=== PATIENT | male | born 1960 | race Caucasian/White ===

== ENCOUNTER 2023-07-30 10:29 | Emergency (ER) | payer OTHER ==
[2023-07-30] MEDS ORDERED: LIDOCAINE 1% INJ 10MG/ML (20 ML MDV) SQ ONE (11:40)
[2023-07-30] MEDS ORDERED: MORPHINE SULFATE 4 MG/ML SYRINGE IM STA ×2 (11:48→13:09)
[2023-07-30] MEDS ORDERED: DIPH,PERTUS(ACELL)TETVAC-LF 0.5 ML VIAL IM ONE (11:48)
[2023-07-30] MEDS ORDERED: CEPHALEXIN 500MG STARTER PACK 4 CAP BTL PO STA (14:19)
[2023-07-30] MEDS ORDERED: ACET/COD 300 MG/30 MG STARTER PACK 6 TAB BTL PO STA (14:19)
[2023-07-30] MEDS ORDERED: SULFAMETH-TMP DS STARTER PACK 2 TAB BTL PO STA (14:19)
--- NOTE | 2023-07-30 14:21 | ED ---
General Adult HPI - General Chief complaint: Skin/Abscess/Foreign Body Stated complaint: Genital pain Time Seen by Provider: 07/30/23 11:29 Source: patient Mode of arrival: ambulatory Limitations: no limitations - History of Present Illness Initial comments: 63-year-old male presents to the ED with a chief complaint of scrotal swelling. Patient states for the past 3-4 weeks has had pain and swelling to his right groin/right scrotum. Since onset patient reports pain and swelling have increased in severity. Denies chills or fevers. No history of MRSA. No chest pain or shortness of breath. No other complaints. - Related Data Previous Rx's Medication Instructions Recorded Cephalexin [Keflex] 500 mg PO Q6HR 7 Days #28 cap 07/30/23 Sulfamethox-Tmp 800-160Mg [Bactrim 1 each PO Q12HR 7 Days #14 tab 07/30/23 Ds] Allergies Allergy/AdvReac Type Severity Reaction Status Date / Time No Known Allergies Allergy Verified 07/30/23 10:46 Review of Systems ROS Statement: Those systems with pertinent positive or pertinent negative responses have been documented in the HPI. ROS Other: All systems not noted in ROS Statement are negative. Past Medical History Past Medical History: Asthma History of Any Multi-Drug Resistant Organisms: None Reported Past Surgical History: No Surgical Hx Reported Past Psychological History: No Psychological Hx Reported Smoking Status: Current every day smoker Past Alcohol Use History: Occasional Past Drug Use History: None Reported General Exam Limitations: no limitations General appearance: alert, in no apparent distress Eye exam: Present: normal appearance Neck exam: Present: normal inspection Respiratory exam: Present: wheezes (Inspiratory wheezing bilaterally.) Cardiovascular Exam: Present: regular rate, normal rhythm GI/Abdominal exam: Present: soft exam: Present: other (Approximately 6 x 4 area of warmth, erythema, and induration over the right scrotum/perineum no spontaneous drainage. No crepitus.) Neurological exam: Present: alert, oriented X3 Skin exam: Present: warm, dry Course Vital Signs 07/30/23 10:44 Temperature 98.7 F Pulse Rate 64 Respiratory 20 Rate Blood Pressure 124/75 O2 Sat by Pulse 97 Oximetry Procedures - Incision & Drainage Site: scrotum Size (cm): 6 Anesthetic Used: lidocaine 1% Amount (mLs): 18 I&D Cleaning Method: Chloroprep Sterile Field Used?: Yes Scalpel Used: #15 Ultrasound used: No I&D Drainage Obtained: Pus, Blood Insertion of drain: No Packing: Iodoform Culture Obtained?: Yes Patient Tolerated Procedure: well, no complications Medical Decision Making - Medical Decision Making Was pt. sent in by a medical professional or institution (HUYEN Tate, BILL BOARD POSTER, urgent care, hospital, or snf...) When possible be specific @ -No Did you speak to anyone other than the patient for history (EMS, parent, family, police, friend...)? What history was obtained from this source @ -No Did you review nursing and triage notes (agree or disagree)? Why? @ -I reviewed and agree with nursing and triage notes Were old charts reviewed (outside hosp., previous admission, EMS record, old EKG, old radiological studies, urgent care reports/EKG's, snf records)? Report findings @ -No old charts were reviewed Differential Diagnosis (chest pain, altered mental status, abdominal pain women, abdominal pain men, vaginal bleeding, weakness, fever, dyspnea, syncope, headache, dizziness, GI bleed, back pain, seizure, CVA, palpatations, mental health, musculoskeletal)? @ -Nilesh's gangrene, MRSA. This is not meant to be an all-inclusive list. EKG interpreted by me (3pts min.). @ -None X-rays interpreted by me (1pt min.). @ -None done CT interpreted by me (1pt min.). @ -None done U/S interpreted by me (1pt. min.). @ -None done What testing was considered but not performed or refused? (CT, X-rays, U/S, labs)? Why? @ -None What meds were considered but not given or refused? Why? @ -None Did you discuss the management of the patient with other professionals (professionals i.e. HUYEN Tate, BILL BOARD POSTER, lab, RT, psych nurse, licensed social worker, electrical and instrument technician, t eacher, financial officer, shelter case manager)? Give summary @ -No Was smoking cessation discussed for >3mins.? @ -No Was critical care preformed (if so, how long)? @ -No Were there social determinants of health that impacted care today? How? (Homelessness, low income, unemployed, alcoholism, drug addiction, transportation, low edu. Level, literacy, decrease access to med. care, fpc, rehab)? @ -No Was there de-escalation of care discussed even if they declined (Discuss DNR or withdrawal of care, Hospice)? DNR status @ -No What co-morbidities impacted this encounter? (DM, HTN, Smoking, COPD, CAD, Cancer, CVA, ARF, Chemo, Hep., AIDS, mental health diagnosis, sleep apnea, morbid obesity)? @ -None Was patient admitted / discharged? Hospital course, mention meds given and [place], prescriptions, significant lab abnormalities, going to OR and other pertinent info. @ -Discharge 63-year-old male presents to the ED with chief complaint of pain and swelling to the scrotum/perineum for the past 3-4 weeks. Examination revealed abscess. This had incision and drainage performed. For further details please see procedure note. Patient placed on Bactrim and Keflex and advised follow-up with urology. At this time, vital signs stable afebrile. Patient discharged home in stable condition. Discussed return precautions with patient who verbalizes agreement. Undiagnosed new problem with uncertain prognosis? @ -No Drug Therapy requiring intensive monitoring for toxicity (Heparin, Nitro, Insulin, Cardizem)? @ -No Were any procedures done? @ -Yes Diagnosis/symptom? @ -Scrotal/perineum abscess Acute, or Chronic, or Acute on Chronic? @ -Acute Uncomplicated (without systemic symptoms) or Complicated (systemic symptoms)? @ -Uncomplicated Side effects of treatment? @ -No Exacerbation, Progression, or Severe Exacerbation? @ -No Poses a threat to life or bodily function? How? (Chest pain, [place], [place], pneumonia, PE, COPD, DKA, ARF, appy, cholecystitis, CVA, Diverticulitis, Homicidal, Suicidal, threat to staff... and all critical care pts) @ -No Disposition Clinical Impression: Scrotal abscess Disposition: HOME SELF-CARE Condition: Good Instructions (If sedation given, give patient instructions): Abscess Incision and Drainage (ED) Additional Instructions: Please return to the Emergency Department if symptoms worsen or any other concerns. Please follow up with urology. Prescriptions: Sulfamethox-Tmp 800-160Mg [Bactrim Ds] 1 each PO Q12HR 7 Days #14 tab Cephalexin [Keflex] 500 mg PO Q6HR 7 Days #28 cap Is patient prescribed a controlled substance at d/c from ED?: No Referrals: None,Stated [Primary Care Provider] - 1-2 days Time of Disposition: 14:25
[2023-07-30 15:20] VITALS: BP 140/74; PULSE 60; RESP 16; TEMP 98.2
== END 2023-07-30 15:14 | disposition home or self-care (01) ==
LOC: EC 10:29
DX: N49.2 Inflammatory disorders of scrotum (principal); J45.909 Unspecified asthma, uncomplicated; F17.200 Nicotine dependence, unspecified, uncomplicated; Z23 Encounter for immunization
CPT/HCPCS: 87070; 87205; 87075; 90715; 10060; 54700; 55100; 99283; 90471; 96372 ×2; J2270; J2001